=== PATIENT | male | born 1980 | race Caucasian/White ===

== ENCOUNTER 2023-12-31 12:01 | Emergency (ER) | payer OTHER, SELFPAY ==
[2023-12-31 12:05] VITALS: BP 149/97; PULSE 82; RESP 15; TEMP 36.9; O2SAT 97; BMI 48.8
--- NOTE | 2023-12-31 12:45 | CTR_ITS ---
PROCEDURE INFORMATION: Exam: CT Abdomen And Pelvis Without Contrast Exam date and time: 12/31/2023 1:06 PM Age: 43 years old Clinical indication: Abdominal pain; Flank; Left; Additional info: Flank pain TECHNIQUE: Imaging protocol: Computed tomography of the abdomen and pelvis without contrast. Radiation optimization: All CT scans at this facility use at least one of these dose optimization techniques: automated exposure control; mA and/or kV adjustment per patient size (includes targeted exams where dose is matched to clinical indication); or iterative reconstruction. COMPARISON: No relevant prior studies available. RADIATION DOSE METRICS: Total DLP (mGy-cm): 1435.13 FINDINGS: Lungs: Lung bases are clear. No pleural effusion. Pleural spaces: A small left pleural effusion is noted. Liver: Normal. No mass. Gallbladder and bile ducts: Normal. No calcified stones. No ductal dilation. Pancreas: Normal. No ductal dilation. Spleen: Normal. No splenomegaly. Adrenal glands: Normal. No mass. Kidneys and ureters: There is a 2 mm stone in the left kidney but I see no ureteral stone or hydronephrosis. Stomach and bowel: Unremarkable. No obstruction. No mucosal thickening. Appendix: No evidence of appendicitis. Intraperitoneal space: Unremarkable. No free air. No significant fluid collection. Vasculature: Unremarkable. No abdominal aortic aneurysm. Lymph nodes: Unremarkable. No enlarged lymph nodes. Urinary bladder: Unremarkable as visualized. Reproductive: Unremarkable as visualized. Bones/joints: Unremarkable. No acute fracture. Soft tissues: Unremarkable. CT/CT kidney stone [id number] IMPRESSION: 1. Small left pleural effusion of uncertain etiology 2. Tiny left renal stone
--- NOTE | 2023-12-31 12:45 | ED_ITS ---
HPI - Abdominal Pain 2 General: Chief Complaint: Abdominal Pain Stated Complaint: left side pain, back pain Time Seen by Provider: 12/31/23 12:44 Source: patient Mode of arrival: ambulatory History of Present Illness: 43-year-old male presents emergency room complaining of left flank pain. States it started on the left lower side of his back up and under his ribs on his left side at times it went into his radiated from his neck down into his low back as well. He refers most of the pain at this time to the left flank and left upper quadrant he denies chest pain. He can return to reproduce the pain with deep inspiration. He has not had any cough fever sweats or chills denies dysuria urgency or frequency or he hematuria. MD elicited complaint: flank pain Associated Symptoms: Denies chills, dysuria and fever(s) Review of Systems 2 Const: Denies: fever(s) or chills Card: Denies: chest pain Resp: Denies: dyspnea GI: Denies: abdominal pain : Denies: dysuria, urinary frequency or urinary urgency Musc: Denies: neck pain or back pain Skin/Breast: Denies: rash PFSH ED 2 PFSH: Medical History (Updated 12/31/23 @ 16:41 by Vipul Rudolph DO) Nephrolithiasis Physical Exam 2 Const: COMMON NORMALS: no acute distress GENERAL APPEARANCE: cooperative and comfortable ORIENTATION/CONSCIOUSNESS: Yes awake, Yes oriented to person, Yes oriented to place and Yes oriented to time HENMT: COMMON NORMALS: normocephalic, atraumatic and hearing grossly normal bilaterally HEAD & SCALP: normocephalic and atraumatic Resp: COMMON NORMALS: normal respiratory effort, No retractions, No use of accessory muscles and clear to auscultation bilaterally AUSCULTATION: clear to auscultation bilaterally Cardio: COMMON NORMALS: regular rate, regular rhythm and No murmurs present (Cardio) RATE: regular rate RHYTHM: regular rhythm GI: COMMON NORMALS: Soft to palpation and No hepatosplenomegaly present A USCULTATION: Yes normoactive bowel sounds PALPATION: Yes Soft to palpation, No Tenderness to palpation present (GI), No Guarding due to palpation present (GI) and Yes No hepatosplenomegaly present Extremity: COMMON NORMALS: normal to inspection, capillary refill normal, no clubbing, cyanosis or edema, no calf tenderness and no pedal edema Neuro: SENSORIUM/ORIENTATION: Yes oriented to person, Yes oriented to place and Yes oriented to time Skin: COMMON NORMALS: no rashes or lesions noted GENERAL SKIN EXAM: no rashes or lesions noted Course 2 Vital Signs: Vital signs: Vital Signs Temperature 98.4 F 12/31/23 12:05 Pulse Rate 87 12/31/23 12:52 Respiratory Rate 15 12/31/23 12:05 Blood Pressure 126/107 12/31/23 12:52 Pulse Oximetry 95 12/31/23 12:52 Oxygen Delivery Me thod Room Air 12/31/23 12:52 MDM - Abdominal Pain Medical Decision Making Patient presented with left flank pain and history of nephrolithiasis CT did not show nephrolithiasis or any other intra-abdominal pathology chest x-ray was negative. Pain is reproducible with deep inspiration mostly in his back and flank. He never really had any chest pain per se we are about to discharge him and did an EKG which showed some concerning changes in the inferior leads but did not meet criteria for ST elevation [place]. And he was having no chest pain at the time. Reviewed the EKG with Dr. Beltran he recommended serial troponins we francisca a second troponin at that time ran troponin on the first blood that had been drawn earlier. Both of them were negative and did not show a significant trend change. Reviewed all the findings with the patient he did contribute more history later in the visit evidently several years ago he states he had a blood clot in his heart and talking to him about more specifics he could remember particular diagnosis by name but he tells me he had an angiogram was done through the radial artery approach. They told him his car coronary arteries were clean but that he had a clot inside of a chamber of his heart and he was on Eliquis for about a year along with carvedilol and isosorbide. Those medications have since been stopped. He does not remember ever having blood clots in his legs or a clot in his lungs. Dr. Pritchard and I both suspect that the changes were seeing on the EKG related to that previous history we did try to get old records but since it was a Tuesday afternoon we are unable to secure them. He states continues to be asymptomatic of chest pain we will discharge him home given diclofenac to use for what appears to be musculoskeletal and pleuritic like discomfort. If he has persistent or change of symptoms return. Medical Records I reviewed the patient's medical records. Lab Data I reviewed the patient's lab results. 12/31/23 13:21 12/31/23 13:21 Labs/Radiology: Radiology Impressions Abdomen/Pelvis CT 12/31/23 12:45 IMPRESSION: 1. Small left pleural effusion of uncertain etiology 2. Tiny left renal stone Chest X-Ray 12/31/23 14:05 IMPRESSION: No acute findings. Laboratory Results WBC 9.31 10^3/uL (3.29-11.43) 12/31/23 13:21 RBC 5.38 10^6/uL (3.85-5.65) 12/31/23 13:21 Hgb 16.10 g/dL (11.27-16.99) 12/31/23 13:21 Hct 47.5 % (37-53) 12/31/23 13:21 MCV 88.3 fl (82-101) 12/31/23 13:21 MCH 29.9 pg (27-33) 12/31/23 13:21 MCHC 33.9 g/dL (30-55) 12/31/23 13:21 RDW 13.4 % (12.1-15.1) 12/31/23 13:21 Plt Count 208 10^3/cmm (157-399) 12/31/23 13:21 MPV 10.7 fL (7.4-10.4) H 12/31/23 13:21 Neut % (Auto) 68.2 % 12/31/23 13:21 Lymph % (Auto) 19.1 % 12/31/23 13:21 [place] % (Auto) 8.1 % 12/31/23 13:21 Eos % (Auto) 3.9 % 12/31/23 13:21 Baso % (Auto) 0.5 % 12/31/23 13:21 Neut # (Auto) 6.35 10^3/uL (1.8-7.7) 12/31/23 13:21 Lymph # (Auto) 1.8 10^3/uL (0.8-4.8) 12/31/23 13:21 [place] # (Auto) 0.8 10^3/uL (0.2-0.9) 12/31/23 13:21 Eos # (Auto) 0.4 10^3/uL (0.0-0.8) 12/31/23 13:21 Baso # (Auto) 0.1 10^3/uL (0.0-0.1) 12/31/23 13:21 Nucleated RBC % (auto) 0 % 12/31/23 13:21 Nucleated RBCs # 0.0 /100WBC 12/31/23 13:21 Sodium 138 mmol/L (136-145) 12/31/23 13:21 Potassium 3.9 mmol/L (3.5-5.1) 12/31/23 13:21 Chloride 102 mmol/L (98-107) 12/31/23 13:21 Carbon Dioxide 25 mmol/L (22-29) 12/31/23 13:21 Anion Gap 14.9 (5-19) 12/31/23 13:21 BUN 7 mg/dL (6-20) 12/31/23 13:21 Creatinine 0.8 mg/dL (0.7-1.2) 12/31/23 13:21 GFR Calculation 106.0 mL/min (90-130) 12/31/23 13:21 Glucose 110 mg/dL (65-115) 12/31/23 13:21 Calculated Osmolality 285 mOsm/kg (285-295) 12/31/23 13:21 Calcium 9.0 mg/dL (8.5-10.5) 12/31/23 13:21 Total Bilirubin 0.4 mg/dL (0.15-1.2) 12/31/23 13:21 AST 15 U/L (0-40) 12/31/23 13:21 ALT 22 U/L (0-41) 12/31/23 13:21 Alkaline Phosphatase 99 U/L (40-130) 12/31/23 13:21 Troponin T Baseline < 6 ng/L (0-15) 12/31/23 13:21 Troponin T 120 Minute 6.07 ng/L (0-15) 12/31/23 15:45 Delta Troponin T 0.86247 ABS# (0-10) 12/31/23 15:45 Total Protein 7.4 g/dL (6.6-8.7) 12/31/23 13:21 Albumin 4.0 g/dL (3.5-5.2) 12/31/23 13:21 Globulin 3.4 g/dL (1.3-4.6) 12/31/23 13:21 Lipase 21 U/L (13-60) 12/31/23 15:45 Urine Color Yellow (Yellow) 12/31/23 13:30 Urine Appearance Clear (CLEAR) 12/31/23 13:30 Urine pH 6 (5-7) 12/31/23 13:30 Ur Specific [place] 1.015 (1.005-1.030) 12/31/23 13:30 Urine Protein Neg (Negative) 12/31/23 13:30 Urine Glucose (UA) Norm (Normal) 12/31/23 13:30 Urine Ketones 1+ (Negative) H 12/31/23 13:30 Urine Blood Neg (Negative) 12/31/23 13:30 Urine Nitrate Negative (Negative) 12/31/23 13:30 Urine Bilirubin 1+ (Negative) H 12/31/23 13:30 Urine Urobilinogen 4 mg/dL (Negative) H 12/31/23 13:30 Ur Leukocyte Esterase Negative (Negative) 12/31/23 13:30 All radiology interpretation(s) finalized by discharge Discharge Plan Discharge Patient Disposition: Home Clinical Impression: Left flank pain Condition: Stable Prescriptions: New diclofenac sodium 75 mg tablet,delayed release (DR/EC) 75 mg PO Q12H PRN (Reason: pain) Qty: 20 0RF No Action losartan 25 mg tablet 25 mg PO DAILY Zepbound 5 mg/0.5 mL pen injector 5 mg SUBCUT Q7D Rx Instructions: ON TUESDAY Discharge Orders: Discharge ED (Routine); Ordered 12/31/23 Ordered By: Vipul Rudolph Referrals: Kirsten Salas [Primary Care Provider] - Discharge Diet: Usual diet Discharge Activity: Resume usual activity Patient Instructions: Opioid Safety, Pain Management Activity Restrictions/Additional Instructions: Thank you for choosing [facility] for your healthcare needs today. Please realize this is an emergency room and that we are providing you with a medical screening exam and this may not be complete and all inclusive of all the testing and or work up that you may need to determine your ailment or severity of your illness. It is very important that you follow up as instructed or that you return to the Emergency Department should you have concerns or if your condition changes or worsens in any way. You are seen today for left flank pain. CT of your abdomen was unremarkable chest x-ray was negative. There were some EKG changes but your cardiac enzymes were normal. We reviewed the EKGs and laboratory findings with the customer care consultant he did not feel there was anything acute present. These changes likely related to the previous heart issue you had told us about in your history. Suspect that some of the symptoms you are having are musculoskeletal you are given diclofenac to use as needed. If symptoms persist follow-up with your primary care doctor. Coding Level of Care Code ED [employer] [facility] for Claudio Landers
[2023-12-31 12:52] VITALS: BP 126/107; PULSE 87; O2SAT 95
[2023-12-31 13:26] LABS: Basophils # 0.1 10^3/uL (0.0-0.1); Basophils % 0.5 %; Eosinophils # 0.4 10^3/uL (0.0-0.8); Eosinophils % 3.9 %; Hematocrit 47.5 % (37-53); Lymphocytes # 1.8 10^3/uL (0.8-4.8); Lymphocytes % 19.1 %; Mean Corpuscular HGB Conc 33.9 g/dL (30-55); Mean Corpuscular Hemoglobin 29.9 pg (27-33); Mean Corpuscular Volume 88.3 fl (82-101); Mean Platelet Volume 10.7 fL (7.4-10.4); Monocytes # 0.8 10^3/uL (0.2-0.9); Monocytes % 8.1 %; Neutrophils # 6.35 10^3/uL (1.8-7.7); Neutrophils % 68.2 %; Nucleated Red Blood Cells % 0 %; Platelet Count 208 10^3/cmm (157-399); Red Blood Count 5.38 10^6/uL (3.85-5.65); Red Cell Distribution Width 13.4 % (12.1-15.1); White Blood Count 9.31 10^3/uL (3.29-11.43)
[2023-12-31 13:44] LABS: Add Urine Microscopic? NO; Charge for UA Resulting for Rev
[2023-12-31 13:44] LABS: Alanine Aminotransferase 22 U/L (0-41); Alkaline Phosphatase 99 U/L (40-130); Anion Gap 14.9 (5-19); Aspartate Amino Transferase 15 U/L (0-40); Blood Urea Nitrogen 7 mg/dL (6-20); Carbon Dioxide 25 mmol/L (22-29); Chloride 102 mmol/L (98-107); Creatinine Clr Calc Pharmacy 184.9117; Globulin 3.4 g/dL (1.3-4.6); Glucose 110 mg/dL (65-115); Osmolality Calculated 285 mOsm/kg (285-295); Potassium 3.9 mmol/L (3.5-5.1); Sodium 138 mmol/L (136-145); Total Bilirubin 0.4 mg/dL (0.15-1.2); Total Protein 7.4 g/dL (6.6-8.7)
[2023-12-31 13:51] LABS: Bilirubin Urine 1+ (Negative); Blood Urine Neg (Negative); Glucose Urine UA Norm (Normal); Ketones Urine 1+ (Negative); Leukocyte Esterase Urine Negative (Negative); Nitrate Urine Negative (Negative); Protein Urine Neg (Negative); Specific Gravity, Urine 1.015 (1.005-1.030); Urine Appearance Clear (CLEAR); Urine Color Yellow (Yellow); Urobilinogen Urine 4 mg/dL (Negative); pH Urine 6 (5-7)
--- NOTE | 2023-12-31 14:05 | XRR_ITS ---
PROCEDURE INFORMATION: Exam: XR Chest Exam date and time: 12/31/2023 2:25 PM Age: 43 years old Clinical indication: Cough; Additional info: Dyspnea/cough TECHNIQUE: Imaging protocol: Radiologic exam of the chest. Views: 1 view. COMPARISON: CT kidney stone [id number] 12/31/2023 1:06 PM FINDINGS: Lungs: Unremarkable. No consolidation or mass. Pleural spaces: Unremarkable. No pleural effusion. No pneumothorax. Heart/Mediastinum: Unremarkable. No cardiomegaly. Bones/joints: Unremarkable. XR/XR chest 1V portable [id number] IMPRESSION: No acute findings.
[2023-12-31] MEDS: sodium chloride 0.9% 1,000 ML 999 ML IV (14:41)
[2023-12-31] MEDS: ketorolac 30 mg/mL INJ IVP (14:43)
--- NOTE | 2023-12-31 14:57 | ECG_ITS ---
[facility] Test Date: 2023-12-31 Pat Name: Aman Sofia Department: Room: Gender: Male [employer] Technician: : 1980 Requested By: Vipul Cuevas Order Number: [id number] Esme MD: Paras Beltran M.D. Measurements Intervals [place] Rate: 72 P: 44 HI: 170 QRS: 33 QRSD: 80 T: 28 QT: 345 QTc: 378 Interpretive Statements SINUS RHYTHM LOW QRS VOLTAGE IN PRECORDIAL LEADS [QRS DEFLECTION < 1.0 mV IN CHEST LEADS] SEPTAL MYOCARDIAL INFARCTION , PROBABLY OLD [40+ ms Q WAVE IN V1/V2] ST ELEVATION, CONSIDER INFERIOR INJURY [MARKED ST ELEVATION W/O NORMALLY INFLECTED T-WAVE IN II/aVF] ACUTE [place] No previous ECG available for comparison Electronically Signed On 01-01-2024 11:10:20 CDT by Paras Beltran M.D. [id number]
--- NOTE | 2023-12-31 15:08 | ECG_ITS ---
[facility] Test Date: 2023-12-31 Pat Name: Aman Sofia Department: Room: Gender: Male Change Over: : 1980 Requested By: Vipul Cuevas Order Number: [id number] Esme MD: Paras Beltran M.D. Measurements Intervals [place] Rate: 72 P: 53 MT: 187 QRS: 31 QRSD: 71 T: 22 QT: 346 QTc: 381 Interpretive Statements SINUS RHYTHM LOW QRS VOLTAGE IN PRECORDIAL LEADS [QRS DEFLECTION < 1.0 mV IN CHEST LEADS] SEPTAL MYOCARDIAL INFARCTION , PROBABLY OLD [40+ ms Q WAVE IN V1/V2] ST ELEVATION, CONSIDER INFERIOR INJURY [MARKED ST ELEVATION W/O NORMALLY INFLECTED T-WAVE IN II/aVF] ACUTE [place] Compared to ECG 12/31/2023 15:01:44 No significant changes Electronically Signed On 01-01-2024 11:10:16 CDT by Paras Beltran M.D. [id number] f
[2023-12-31 15:36] LABS: Troponin(5th) Baseline < 6 ng/L (0-15)
[2023-12-31 16:09] LABS: Lipase 21 U/L (13-60)
[2023-12-31 16:10] LABS: Troponin 5 2HR 6.07 ng/L (0-15); Troponin 5 2HR Delta 0.07001 ABS# (0-10)
[2023-12-31 16:50] VITALS: BP 132/97; PULSE 78; O2SAT 95
--- NOTE | 2023-12-31 17:10 | ECG_ITS ---
[facility] Test Date: 2023-12-31 Pat Name: Aman Sofia Department: Room: Gender: Male [employer] Curator: : 1980 Requested By: Vipul Cuevas Order Number: [id number] Esme MD: Paras Beltran M.D. Measurements Intervals [place] Rate: 72 P: 49 ME: 165 QRS: 22 QRSD: 94 T: 20 QT: 364 QTc: 399 Interpretive Statements SINUS RHYTHM LOW QRS VOLTAGE IN PRECORDIAL LEADS [QRS DEFLECTION < 1.0 mV IN CHEST LEADS] Compared to ECG 12/31/2023 15:08:58 Myocardial infarct finding no longer present ST (T wave) deviation no longer present Electronically Signed On 01-01-2024 11:18:27 CDT by Paras Beltran M.D. [id number]
== END 2023-12-31 16:52 | disposition home or self-care (01) ==
PROVIDERS: Emergency Provider Family Medicine; PCP Nurse Practitioner Family
DX: R10.9 Unspecified abdominal pain (principal)
CPT/HCPCS: 36415; 71045; 74176; 80053; 81003; 83690; 84484; 85025; 93005; 96361; 96374; 99285; J1885; J7030